=== PATIENT | male | born 1945 | race Two or more races ===

== ENCOUNTER 2018-10-08 08:17 | Day surgery (SDC) | payer OTHER ==
[2018-09-22 15:31] VITALS: BMI 30.4
[2018-10-08] MEDS ORDERED: PROPOFOL 20 ML ONE ×2 (09:08)
[2018-10-08 10:40] VITALS: BP 130/77; PULSE 71; TEMP 97.8
--- NOTE | 2018-10-13 11:21 | PATH ---
Surgical Pathology Report Patient Name: YUMIKO SAXENA [facility]. Rec. #: [id number] /Age/Gender: 1945 (Age: 73) / M Account: [id number] Location: [facility] Taken: 10/08/2018 Received: 10/08/2018 Reported: 10/13/2018 Physicians: Sierra Bruner M.D. Specimen(s) Received A: TRANSVERSE COLON POLYP B: 40 CM DESCENDING COLON POLYP Clinical History Screening Postoperative diagnosis: Diverticulosis, polyps, hemorrhoids Final Diagnosis A. TRANSVERSE COLON, POLYP, POLYPECTOMY: TUBULAR ADENOMA. PORTION OF FOOD MATTER. B. DESCENDING COLON AT 40 CM, POLYP, POLYPECTOMY: COLONIC MUCOSA SHOWING MILD SURFACE HYPERPLASTIC CHANGE AND SMALL BENIGN/REACTIVE LYMPHOID AGGREGATE. Electronically Signed Kimberly Tenorio M.D. Gross Description A. Received in formalin, labeled "polyp at transverse colon" are 2 cox, irregular portions of soft tissue averaging 0.5 cm. in greatest dimension. The specimens are submitted in toto in one cassette. B. Received in formalin, labeled "polyp at 40 cm descending colon" is a cox, irregular portion of soft tissue measuring 0.5 cm. in greatest dimension. The specimen is submitted in toto in one cassette. 10/08/201810/08/2018
== END 2018-10-08 10:40 | disposition home or self-care (01) ==
LOC: FASU-ENDO 08:17
PROVIDERS: ATTEND Internal Medicine Gastroenterology
PROC: 0DBN8ZX Excision of Sigmoid Colon, Via Natural or Artificial Opening Endoscopic, Diagnostic (ICD-10-PCS; 2018-10-08)
PROC: 0DBL8ZX Excision of Transverse Colon, Via Natural or Artificial Opening Endoscopic, Diagnostic (ICD-10-PCS; principal; 2018-10-08 09:20)
DX: D12.3 Benign neoplasm of transverse colon (principal); K63.5 Polyp of colon; K57.30 Diverticulosis of large intestine without perforation or abscess without bleeding; K64.8 Other hemorrhoids; I11.0 Hypertensive heart disease with heart failure; I50.9 Heart failure, unspecified; I48.91 Unspecified atrial fibrillation; Z79.01 Long term (current) use of anticoagulants; K21.9 Gastro-esophageal reflux disease without esophagitis; J44.9 Chronic obstructive pulmonary disease, unspecified; G47.00 Insomnia, unspecified; E87.5 Hyperkalemia; I69.859 Hemiplegia and hemiparesis following other cerebrovascular disease affecting unspecified side
CPT/HCPCS: 88305-TC